=== PATIENT | female | born 1985 | race Caucasian/White ===

== ENCOUNTER → 2016-10-30 | Outpatient (CLI) | payer OTHER | LOC: CPRE 09:53 | PROVIDERS: ATTEND Obstetrics & Gynecology | DX: Z01.812 Encounter for preprocedural laboratory examination (principal); N92.0 Excessive and frequent menstruation with regular cycle | CPT/HCPCS: 36415; 80053; 81001; 85025; 86850; 86900; 86901 ==

== ENCOUNTER → 2016-10-31 | Day surgery (SDC) | payer OTHER ==
[2016-10-30 10:47] LABS: AUTOMATED NEUTROPHIL # 4.4 TH/MM3 (1.8-7.7); BASOPHIL % 0.6 % (0.0-2.0); EOSINOPHIL % 0.5 % (0.0-4.0); HEMATOCRIT 40.7 % (35.0-46.0); HEMO FLAGS DIFF FINAL; LYMPH % 29.4 % (9.0-44.0); LYMPHOCYTE # 2.2 TH/MM3 (1.0-4.8); MEAN CELL VOLUME 91.8 FL (80.0-100.0); MEAN CORPUSCULAR HEMOGLOBIN 31.8 PG (27.0-34.0); MEAN CORPUSCULAR HGB CONC 34.6 % (32.0-36.0); MONO % 8.9 % (0.0-8.0); NEUT % 60.6 % (16.0-70.0); PLATELET COUNT 250 TH/MM3 (150-450); RED BLOOD COUNT 4.43 MIL/MM3 (4.00-5.30); RED CELL DISTRIBUTION WIDTH 12.7 % (11.6-17.2); WHITE BLOOD COUNT 7.3 TH/MM3 (4.0-11.0)
[2016-10-30 10:49] LABS: BLOOD, URINE NEG (NEG); GLUCOSE,URINE NEG (NEG); KETONE, URINE NEG (NEG); MUCUS URINE FEW /lpf (OCC); NITRITE,URINE NEG (NEG); SQUAMOUS EPITHELIAL CELL URINE <1 /hpf (0-5); URINE COLOR YELLOW (YELLW/STRAW)
[2016-10-30 11:22] LABS: ALKALINE PHOSPHATASE 38 U/L (45-117); ALT (GPT) 20 U/L (10-53); ANION GAP 8 MEQ/L (5-15); AST (GOT) 6 U/L (15-37); BICARBONATE 22.8 MEQ/L (21.0-32.0); BLOOD UREA NITROGEN 9 MG/DL (7-18); CHLORIDE 107 MEQ/L (98-107); GLOMERULAR FILTRATION RATE 99 ML/MIN (>89); GLUCOSE,FASTING 85 MG/DL (74-99); POTASSIUM 3.9 MEQ/L (3.5-5.1); SODIUM (NA) 138 MEQ/L (136-145); TOTAL BILIRUBIN ADULT 0.4 MG/DL (0.2-1.0)
[~2016-10-31] VITALS: Ht 160 cm; Wt 73.5 kg
[~2016-10-31] MED LIST: DEXAMETHASONE SOD PHOS 4 MG/ML VIAL ONE; DO NOT ADM ANY ANTICOAGULANT DRUGS XX PRN; FAMOTIDINE 20 MG/2 ML VIAL ONE; INSULIN HUMAN REGULAR 1,000 UNITS/10 ML VIAL SQ PRN; KETOROLAC TROMETHAMINE 60 MG/2 ML (IM) VIAL IM ONE; LACTATED RINGER'S 1000 ML IV SCH; METOPROLOL TARTRATE 25 MG TAB PO PRN; MIDAZOLAM HCL 2 MG/2 ML VIAL ONE; ONDANSETRON HCL 4 MG/2 ML VIAL IV PUSH ONE; ONDANSETRON HCL 4 MG/2 ML VIAL IV PUSH PRN; OXYTOCIN 10 UNIT/ML AMP ONE; PROPOFOL 200 MG/20 ML AMP IV ONE; SODIUM CHLORID 0.9% 500 ML IV SCH; fentaNYL CITRATE 250 MCG/5 ML AMP ONE; oxyCODONE/ACETAMINOPHEN 5 MG/325 MG TAB PO PRN
[2016-10-31 11:19] VITALS: BP 130/85; PULSE 107; RESP 18; TEMP 98.4; O2SAT 100
[2016-10-31 15:00] VITALS: BP 144/83; PULSE 109; RESP 18; TEMP 97.4; O2SAT 100
--- NOTE | 2016-11-06 23:23 | MP ---
cc: Jeanne PORTILLO DATE OF SURGERY 10/31/2016 PREOPERATIVE DIAGNOSIS Missed POSTOPERATIVE DIAGNOSIS Missed PROCEDURE Dilation and evacuation of the uterus ANESTHESIA General SURGEON Jeanne Portillo MD FINDINGS Uterus was 8-10 weeks size. Products of conception looked normal. There were no adnexal masses. COMPLICATIONS None. COUNTS Correct. ESTIMATED BLOOD LOSS 100 mL FLUIDS Crystalloid DISPOSITION The patient tolerated the procedure well and went to recovery room in good condition. PROCEDURE IN DETAIL The patient was taken to the operating theater and identified by name band and verbally. A time-out was taken and once we all agreed, she was placed in the dorsal lithotomy position and prepped and draped for vaginal surgery. The urinary bladder was drained with in-and-out catheter and examination under anesthesia was carried out with the above findings. A weighted speculum was placed in the vagina. The anterior lip of the cervix was grasped with a single-tooth tenaculum. The cervix was serially dilated slowly without difficulty and a #10 cannula was placed into the cervical canal and into the endometrium. The suction was applied and the products of conception looked normal. A sharp curettage followed and the suction was reapplied. There was no other tissue in the uterus and at this point the procedure was terminated. The instruments were removed. She tolerated procedure well and went to recovery room in good condition. Jeanne Portillo MD RJV/ /3:44 PM /11:14 PM
== END | disposition home or self-care (01) ==
LOC: HSDC 10:38
PROVIDERS: ATTEND Obstetrics & Gynecology
DX: O02.1 Missed abortion (principal)
CPT/HCPCS: 01965; 36415; 59820; 80053; 81001; 85025; 86850; 86900; 86901; 88305; 90384; J1100; J1885; J2250; J2405; J3010; J7120; J2590; J2790

== ENCOUNTER 2017-07-28 16:56 | Emergency (ER) | payer MEDICAID, OTHER ==
[~2017-07-28] VITALS: Ht 160 cm; Wt 70.8 kg
[2017-07-28] VITALS (7 sets, daily range): BP systolic 121–142; BP diastolic 69–78; PULSE 116–130
[2017-07-28] MEDS ORDERED: PNV11TAB (17:11)
[2017-07-28 18:22] LABS: BACTERIA, URINE RARE /hpf; BLOOD, URINE NEG (NEG); COMMENT (UR) CULT NOT INDICATED; CULTURE IF INDICATED CULT NOT INDICATED; GLUCOSE,URINE NEG (NEG); KETONE, URINE 10 mg/dL (NEG); NITRITE,URINE NEG (NEG); SQUAMOUS EPITHELIAL CELL URINE <1 /hpf (0-5); URINE COLOR LIGHT-YELLOW (YELLW/STRAW)
--- NOTE | 2017-07-28 18:25 | PD ---
HPI Chief Complaint Patient sent over by Dr. Portillo for PIH evaluation Date Seen: Jul 28, 2017 Time Seen: 18:00 Travel History International Travel<30 Days: No Contact w/Intl Traveler<30Days: No Known Affected Area: No History of Present Illness HPI Patient is 32-year-old white female A1 at [address] Portillo for care and was in his office today had high blood pressure to be sent over here, she has no complaints or problems of no headache visual changes or abdominal pain. Blood pressure here all 130 over 70s, urinalysis negative for protein. Patient has a history of preeclampsia with her first and that a for that 35 weeks second uneventful no preeclampsia but she had a repeat Weeks Gestation: 21 Para: 2 : 4 Last Menstrual Period: Jul 28, 2017 Miscarriage: 1 History Obstetric History Obstetric History Preeclampsia with first not with second both pregnancies were C-sections, the last with associated with uterine rupture as well Past Surgical History Narrative Surgical 2 C-sections, and repair of uterine rupture with second Social History Alcohol Use: No Tobacco Use: No Substance Abuse: No Allergies-Medications (Allergen,Severity, Reaction): Coded Allergies: No Known Allergies (Verified , 10/30/16) Home Meds Reported Medications Nmp618/FA/Omega3/Dha/Fish Oil ( Gummies) 400 Mcg-32.5 Mg (25 Mg-7.5 Mg) Tab.chew 07/28/17 Review of Systems General / Constitutional: No: Fever, Weight Gain, Chills, Other Eyes: No: Diploplia, Blurred Vision, Visual changes, Pain, Photophobia HENT: No: Headaches, Vertigo, Lightheadedness Cardiovascular: No: Irregular Rhythm, Chest Pain or Discomfort, Palpitations, Tachycardia, Syncope, Varicosities, Edema, Cyanosis Respiratory: No: Cough, Short of Breath, Other Gastrointestinal: No: Nausea, Vomiting, Diarrhea Genitourinary: No: Decreased Urinary Output, Oliguria Musculoskeletal: No: Limited ROM, Weakness, Cramping, Edema, Pain Skin: No Rash, No Itching, No Dryness, No Lumps, No Change in Pigmentation, No Change in Nails, No Alopecia, No Lesions Neurologic: No: Weakness, Dizziness, Syncope, Focal Abnormalities, Coordination Problem, Headache, Slurred Speech, Seizures Psychiatric: No: Depression, Suicidal Ideations, Homicidal Ideation Endocrine: No: Heat Intolerance, Cold Intolerance, Polydipsia, Polyuria, Other Physical Exam Narrative GENERAL: Well-nourished, well-developed patient. SKIN: Warm and dry. HEAD: Normocephalic and atraumatic. EYES: No scleral icterus. No injection or drainage. ENT: No nasal drainage noted. Mucous membranes pink. Airway patent. NECK: Supple, trachea midline. No JVD. CARDIOVASCULAR: Regular rate and rhythm without murmurs, gallops, or rubs. RESPIRATORY: Breath sounds equal bilaterally. No accessory muscle use. BREASTS: Bilateral exam showed no masses , no retractions, no nipple discharge. ABDOMEN/GI: Abdomen soft, non-tender, bowel sounds present, no rebound, no guarding Gravid to [20-] weeks size Fundal Height: [-at umbilicus] GENITOURINARY: Uterine Contractions: [-none] FHT's: 140s EXTREMITIES: No cyanosis or edema. BACK: Nontender without obvious deformity. No CVA tenderness. NEUROLOGICAL: Awake and alert. Motor and sensory grossly within normal limits. Five out of 5 muscle strength in all muscle groups. Normal speech. Data Data Orders Orders Vital Signs (Adult) .ON ADMISSION (07/28/17 17:35) ^ Labor Status (07/28/17 17:35) Urinalysis - C+S If Indicated (07/28/17 17:35) Cbc No Diff, Includes Plts (07/28/17 17:35) Comprehensive Metabolic Panel (07/28/17 17:35) Uric Acid (07/28/17 17:35) Labs Urine dipstick negative for protein Laboratory Tests Test 07/28/17 17:29 [facility] Interpretation(s) 32-year-old white female G3 for at 21 weeks who was sent over by Dr. Portillo for PIH venancio. Her blood pressure in his office was elevated and the 140/80 range and with her history of preeclampsia with her first being delivered early by her second had a uterine rupture associated , he wanted the patient sent over for evaluation. Her blood pressures here within normal limits 130s over 70s, urine dipstick negative for protein PIH lab within normal limits Plan Plan for patient to be discharged today to follow-up with Dr. Portillo in the usual fashion Diagnosis Diagnosis: Primary Impression: Transient hypertension of Additional Impressions: 21 weeks gestation of History of pre-eclampsia in prior , currently in second trimester Disposition: 01 DISCHARGE HOME Condition: Stable Dinesh Muñoz II, MD Jul 28, 2017 18:25
[2017-07-28 18:44] LABS: HEMATOCRIT 35.4 % (35.0-46.0); MEAN CELL VOLUME 93.7 FL (80.0-100.0); MEAN CORPUSCULAR HEMOGLOBIN 32.6 PG (27.0-34.0); MEAN CORPUSCULAR HGB CONC 34.8 % (32.0-36.0); PLATELET COUNT 199 TH/MM3 (150-450); RED BLOOD COUNT 3.78 MIL/MM3 (4.00-5.30); RED CELL DISTRIBUTION WIDTH 13.1 % (11.6-17.2); REVIEW FLAG FINAL; WHITE BLOOD COUNT 11.5 TH/MM3 (4.0-11.0)
[2017-07-28 19:00] LABS: ALT (GPT) 20 U/L (10-53); ANION GAP 9 MEQ/L (5-15); AST (GOT) 12 U/L (15-37); BICARBONATE 19.9 MEQ/L (21.0-32.0); BLOOD UREA NITROGEN 5 MG/DL (7-18); CHLORIDE 108 MEQ/L (98-107); GLOMERULAR FILTRATION RATE 199 ML/MIN (>89); POTASSIUM 3.9 MEQ/L (3.5-5.1); SODIUM (NA) 137 MEQ/L (136-145)
[2017-07-28 19:06] LABS: ALKALINE PHOSPHATASE 36 U/L (45-117); TOTAL BILIRUBIN ADULT 0.3 MG/DL (0.2-1.0); URIC ACID 3.1 MG/DL (2.6-6.0)
== END 2017-07-28 19:29 | disposition home or self-care (01) ==
LOC: HOBED 16:56
DX: O13.2 Gestational [pregnancy-induced] hypertension without significant proteinuria, second trimester (principal); Z3A.21 21 weeks gestation of pregnancy
CPT/HCPCS: 36415; 80053; 81001; 84550; 85027; 99284

== ENCOUNTER 2017-11-30 09:49 | Inpatient (IN) | payer MEDICAID ==
[~2017-11-30] VITALS: Ht 160 cm; Wt 76.0 kg
[~2017-11-30 09:49] MED LIST changes: -DEXAMETHASONE SOD PHOS 4 MG/ML VIAL ONE; -DO NOT ADM ANY ANTICOAGULANT DRUGS XX PRN; -FAMOTIDINE 20 MG/2 ML VIAL ONE; -INSULIN HUMAN REGULAR 1,000 UNITS/10 ML VIAL SQ PRN; -KETOROLAC TROMETHAMINE 60 MG/2 ML (IM) VIAL IM ONE; -LACTATED RINGER'S 1000 ML IV SCH; -METOPROLOL TARTRATE 25 MG TAB PO PRN; -MIDAZOLAM HCL 2 MG/2 ML VIAL ONE; -ONDANSETRON HCL 4 MG/2 ML VIAL IV PUSH ONE; -ONDANSETRON HCL 4 MG/2 ML VIAL IV PUSH PRN; -OXYTOCIN 10 UNIT/ML AMP ONE; +PNV11TAB; -PROPOFOL 200 MG/20 ML AMP IV ONE; -SODIUM CHLORID 0.9% 500 ML IV SCH; -fentaNYL CITRATE 250 MCG/5 ML AMP ONE; -oxyCODONE/ACETAMINOPHEN 5 MG/325 MG TAB PO PRN
[2017-11-30] MEDS ORDERED: ASPI81CH7 CHEW (11:10)
[2017-11-30] MEDS ORDERED: NIFE30TA61 PO (11:10)
[2017-11-30] MEDS ORDERED: CITRIC ACID-SODIUM CITRATE LIQ 30 ML UDC PO SCH (11:15)
[2017-11-30] MEDS ORDERED: LACTATED RINGER'S 1000 ML IV SCH (11:15)
[2017-11-30] MEDS ORDERED: ceFAZolin 2 GM PREMIX 50 ML IV SCH (11:15)
[2017-11-30] MEDS ORDERED: LACTATED RINGER'S 1000 ML IV ONE (11:15)
[2017-11-30 11:26] LABS: AUTOMATED NEUTROPHIL # 7.5 TH/MM3 (1.8-7.7); BASOPHIL % 0.3 % (0.0-2.0); EOSINOPHIL % 0.1 % (0.0-4.0); HEMATOCRIT 39.2 % (35.0-46.0); LYMPH % 20.3 % (9.0-44.0); LYMPHOCYTE # 2.1 TH/MM3 (1.0-4.8); MEAN CELL VOLUME 92.6 FL (80.0-100.0); MEAN CORPUSCULAR HEMOGLOBIN 33.2 PG (27.0-34.0); MEAN CORPUSCULAR HGB CONC 35.8 % (32.0-36.0); MEAN PLATELET VOLUME 8.6 FL (7.0-11.0); MONO % 5.9 % (0.0-8.0); MONOCYTE # 0.6 TH/MM3 (0-0.9); NEUT % 73.4 % (16.0-70.0); PLATELET COUNT 187 TH/MM3 (150-450); RED BLOOD COUNT 4.23 MIL/MM3 (4.00-5.30); RED CELL DISTRIBUTION WIDTH 13.2 % (11.6-17.2); WHITE BLOOD COUNT 10.2 TH/MM3 (4.0-11.0)
[2017-11-30 11:49] LABS: ALBUMIN 3.2 GM/DL (3.4-5.0); AST (GOT) 19 U/L (15-37); BLOOD UREA NITROGEN 5 MG/DL (7-18); CALCIUM 8.8 MG/DL (8.5-10.1); CHLORIDE 109 MEQ/L (98-107); CREATININE 0.57 MG/DL (0.50-1.00); GLOMERULAR FILTRATION RATE 125 ML/MIN (>89); GLUCOSE,RANDOM 77 MG/DL (74-106); SODIUM (NA) 139 MEQ/L (136-145)
[2017-11-30 11:53] LABS: ALKALINE PHOSPHATASE 140 U/L (45-117); ALT (GPT) 21 U/L (10-53); TOTAL BILIRUBIN ADULT 0.4 MG/DL (0.2-1.0)
[2017-11-30] MEDS ORDERED: MORPHINE SULFATE PF 5 MG/10 ML VIAL ONE (11:57)
[2017-11-30] MEDS ORDERED: ACETAMINOPHEN 1000 MG/100 ML 100 ML IV ONE ×2 (11:57→14:00)
[2017-11-30] MEDS ORDERED: LACTATED RINGER'S 1000 ML INJ 2,000 ML IV ONE (12:00)
[2017-11-30] MEDS ORDERED: ceFAZolin INJ 1,000 MG VIAL IV ONE (12:00)
[2017-11-30] MEDS ORDERED: ePHEDrine/NS 25 MG/5 ML SYRINGE IV ONE (12:00)
[2017-11-30] MEDS ORDERED: DEXAMETHASONE SOD PHOS 4 MG/ML VIAL IV ONE (12:00)
[2017-11-30] MEDS ORDERED: KETOROLAC TROMETHAMINE 30 MG/ML (IVP) VIAL IV PUSH ONE (12:00)
[2017-11-30] MEDS ORDERED: ONDANSETRON HCL 4 MG/2 ML VIAL IV ONE (12:00)
[2017-11-30] MEDS ORDERED: OXYTOCIN 10 UNIT/ML AMP IV ONE (12:00)
[2017-11-30] MEDS ORDERED: EPIDURAL-NO SYSTEMIC NARCOTICS PRN (12:20)
[2017-11-30] MEDS ORDERED: EPIDURAL-NALOXONE HCL 0.4 MG/ML AMP IV PUSH PRN (12:20)
[2017-11-30] MEDS ORDERED: EPIDURAL-DIPHENHYDRAMINE HCL 50 MG/ML VIAL IV PUSH PRN (12:20)
[2017-11-30] MEDS ORDERED: EPIDURAL-DO NOT ADMINISTER ANTICOAGULANTS PRN (12:20)
[2017-11-30] MEDS ORDERED: EPIDURAL-DIPHENHYDRAMINE HCL 50 MG CAP PO PRN (12:20)
[2017-11-30] MEDS ORDERED: SODIUM CHLORIDE 0.9% FLUSH 10 ML FLUSH IV FLUSH PRN (14:00)
[2017-11-30] MEDS ORDERED: oxyCODONE/ACETAMINOPHEN 5 MG/325 MG TAB PO PRN ×2 (14:00)
[2017-11-30] MEDS ORDERED: OXYTOCIN 30 UNITS-500ML PREMIX 500 ML IV ONE ×2 (14:00)
[2017-11-30] MEDS ORDERED: OXYTOCIN 30 UNITS-500ML PREMIX 500 ML ONE (14:12)
[2017-11-30 15:30] LABS: BACTERIA, URINE RARE /hpf; BILIRUBIN, URINE NEG (NEG); BLOOD, URINE NEG (NEG); GLUCOSE,URINE NEG (NEG); HYALINE CAST, URINE 1 /lpf (RARE); KETONE, URINE 10 mg/dL (NEG); MUCUS URINE FEW /lpf (OCC); NITRITE,URINE NEG (NEG); PH, URINE 5.5 (5.0-8.5); SQUAMOUS EPITHELIAL CELL URINE 3 /hpf (0-5); URINE COLOR YELLOW (YELLW/STRAW); URINE LEUKOCYTE ESTERASE NEG (NEG)
--- NOTE | 2017-11-30 15:43 | MP ---
cc: Jeanne Portillo MD DATE OF OPERATION: PREOPERATIVE DIAGNOSES: 1. Intrauterine at 39+ weeks. 2. Previous section due to repeat. 3. RH negative blood. POSTOPERATIVE DIAGNOSES: 1. Intrauterine at 39+ weeks. 2. Previous section due to repeat. 3. RH negative blood. PROCEDURE: Repeat low transverse section. SURGEON: Jeanne Portillo MD. CREMATORIUM OPERATOR: []. ANESTHESIA: Spinal. FINDINGS: Normal male infant, weight 6 pounds 13 ounces, Apgars 9 and 9. Normal tubes, normal ovaries, normal uterus, normal cul-de-sac. COMPLICATIONS: None. COUNTS: Correct. ESTIMATED BLOOD LOSS: 600 mL. FLUIDS: Crystalloid. CONDITION: The patient tolerated the procedure well and went to the recovery room in satisfactory condition. PROCEDURE: Under an adequate level of anesthesia, she was prepped and draped for abdominal surgery. A Pfannenstiel incision was made and carried down to the fascia. The fascia was taken off the rectus muscle by blunt and sharp dissection. The rectus muscles were spread bluntly and the peritoneum was entered under direct vision without difficulty. The incision was extended with care to avoid the urinary bladder. A bladder blade was placed and a bladder flap created in the usual fashion. The uterine incision was made in a transverse manner along the lower uterine segment which was not well-developed. It was taken down in the midline until the intrauterine cavity was entered. A large amount of clear fluid was noted. The vertex was grasped with a suction cup and delivered. The hypopharynx and nasopharynx were suctioned and the remainder of the infant delivered without difficulty. The cord was doubly clamped and cut and the handed to the resuscitation team present. The placenta was then delivered manually. The uterus was curettaged twice with a wet lap and irrigated with a large amount of fluid. The uterine incision was then repaired with 2-0 Vicryl in a running locking fashion, with the second layer imbricating the first. Hemostasis was excellent. The cul-de-sac and gutters were cleaned of blood and debris. The uterus was delivered back into the abdomen. The rectus muscles were reapproximated with 0 Vicryl in interrupted fashion. The fascia was repaired from lateral to midline with 0 Vicryl and the subcu was repaired with 3-0 Vicryl. The skin was repaired with a 4-0 Vicryl in a subcuticular manner. The wound was sterilely dressed. She tolerated the procedure well and went to the recovery room in satisfactory condition. R. MD NONA [place]/SHALONDA , 01:30 PM , 02:48 PM
[2017-11-30] MEDS ORDERED: LACTATED RINGER'S 1000 ML INJ 1,000 ML IV SCH (18:23)
[2017-11-30] MEDS ORDERED: SODIUM CHLORIDE 0.9% FLUSH 10 ML FLUSH IV FLUSH SCH (21:00)
[2017-11-30] MEDS ORDERED: ZOLPIDEM TARTRATE 5 MG TAB PO PRN (21:00)
[2017-11-30] MEDS ORDERED: OXYTOCIN 30 UNITS-500ML PREMIX 500 ML IV PRN (23:30)
[2017-12-01 06:01] LABS: AUTOMATED NEUTROPHIL # 8.8 TH/MM3 (1.8-7.7); BASOPHIL % 0.3 % (0.0-2.0); EOSINOPHIL % 0.2 % (0.0-4.0); HEMATOCRIT 33.2 % (35.0-46.0); HEMOGLOBIN 11.6 GM/DL (11.6-15.3); LYMPH % 16.4 % (9.0-44.0); LYMPHOCYTE # 1.9 TH/MM3 (1.0-4.8); MEAN CORPUSCULAR HEMOGLOBIN 32.9 PG (27.0-34.0); MEAN CORPUSCULAR HGB CONC 35.1 % (32.0-36.0); MONO % 8.2 % (0.0-8.0); NEUT % 74.9 % (16.0-70.0); PLATELET COUNT 157 TH/MM3 (150-450); RED BLOOD COUNT 3.53 MIL/MM3 (4.00-5.30); WHITE BLOOD COUNT 11.7 TH/MM3 (4.0-11.0)
[2017-12-01 08:00] VITALS: BP 117/75; PULSE 75; RESP 18; TEMP 98.3; O2SAT 100
--- NOTE | 2017-12-01 08:48 | HHI.OB ---
Subjective Post Operative Day: 1 Objective Vitals/I&O BP's have been less than 120's/70-80's afebrile pulse and resp wnl Result Diagram: 12/01/17 0520 11/30/17 1045 Objective Remarks GENERAL: Well-nourished, well-developed patient. CARDIOVASCULAR: Regular rate and rhythm without murmurs, gallops, or rubs. RESPIRATORY: Breath sounds equal bilaterally. No accessory muscle use. ABDOMEN/GI: Abdomen soft, non-tender, bowel sounds present. Incision: dressing, Clean, dry and intact. Fundus: Firm, non-tender at umbilicus. GENITOURINARY: Light to moderate bleeding. EXTREMITIES: No cyanosis or edema, non-tender, without signs of DVT. Medications and IVs Current Medications Medications (Trade) Dose Ordered Sig/Kym Route Start Time Stop Time Status Last Admin (Bicitra Liq) 30 ml TITLE I DIRECTOR PO 11/30/17 11:15 12/03/17 11:14 11/30/17 11:54 Cefazolin Sodium/ Dextrose 50 ml @ 100 mls/hr TITLE I DIRECTOR IV 11/30/17 11:15 12/03/17 11:14 Lactated Ringer's 1,000 ml @ 100 mls/hr Q10H IV 11/30/17 18:23 12/01/17 14:22 Oxytocin 500 ml @ 100 mls/hr UNSCH X1 PRN IV 11/30/17 23:30 12/01/17 23:29 (NS Flush) 2 ml BID IV FLUSH 11/30/17 21:00 (NS Flush) 2 ml UNSCH PRN IV FLUSH 11/30/17 14:00 (Motrin) 600 mg Q6H PRN PO 11/30/17 14:00 (Percocet 5-325 Mg) 1 tab Q4H PRN PO 11/30/17 14:00 (Percocet 5-325 Mg) 2 tab Q4H PRN PO 11/30/17 14:00 (Ambien) 5 mg HS PRN PO 11/30/17 21:00 (M-M-R Ii Inj) 0.5 ml ONCE ONCE SQ 12/01/17 16:00 12/01/17 16:01 (Boostrix Inj) 0.5 ml ONCE ONCE IM 12/01/17 16:00 12/01/17 16:01 11/30/17 20:06 Miscellaneous Information NO SYSTEMIC NARCOTICS TO BE GIVEN FO... UNSCH PRN .XX 11/30/17 12:20 12/01/17 12:19 (Narcan Inj) 0.4 mg UNSCH PRN IV PUSH 11/30/17 12:20 12/01/17 12:19 (Benadryl Inj) 25 mg Q6H PRN IV PUSH 11/30/17 12:20 12/01/17 12:19 (Benadryl) 50 mg Q6H PRN PO 11/30/17 12:20 12/01/17 12:19 Miscellaneous Information ALL NURSING DEPARTMENTS UNSCH PRN .XX 11/30/17 12:20 12/01/17 12:19 Assessment/Plan Problem List: (1) S/P repeat low transverse ICD Codes: Z98.891 - History of uterine scar from previous surgery Assessment and Plan POD #1 pt doing well pain well managed with oral garza medication bp have been normal, no S/S of pre-eclampsia breast feeding and bonding well with infant up to shower today routine care Discharge Planning consider dc home tomorrow Melissa Modi Dec 01, 2017 08:48
[2017-12-01] MEDS: IBUPROFEN 600 MG TAB PO PRN ×3 (11:16→23:23)
[2017-12-01 12:00] VITALS: BP 134/90; PULSE 103; RESP 18; TEMP 98.3; O2SAT 98
[2017-12-01 15:44] VITALS: BP 138/78
[2017-12-01] MEDS ORDERED: DIPHTH/TETANUS/ACEL PERTUSSIS (BOOSTER) 0.5 ML VIAL/PFS IM ONE (16:00)
[2017-12-01] MEDS ORDERED: MEASLES, MUMPS, RUBELLA VACCINE 0.5 ML VIAL SQ ONE (16:00)
[2017-12-01 20:00] VITALS: BP 127/92; PULSE 70; RESP 18; TEMP 98.9; O2SAT 96
[2017-12-02] MEDS: IBUPROFEN 600 MG TAB PO PRN ×2 (05:26→12:06)
[2017-12-02 08:00] VITALS: BP 144/91; PULSE 82; RESP 16; TEMP 98.1
--- NOTE | 2017-12-02 08:30 | HHI.OB ---
Subjective Post Operative Day: 2 Objective Vitals/I&O Vital Signs Date Time Temp Pulse Resp B/P (MAP) Pulse Ox O2 Delivery O2 Flow Rate FiO2 12/01/17 20:00 98.9 70 18 127/92 (104) 96 12/01/17 15:44 138/78 (98) 12/01/17 12:00 98.3 103 18 134/90 (105) 98 12/01/17 12:00 98.3 103 18 134/90 (105) 98 Result Diagram: 12/01/17 0520 11/30/17 1045 Objective Remarks GENERAL: Well-nourished, well-developed patient. CARDIOVASCULAR: Regular rate and rhythm without murmurs, gallops, or rubs. RESPIRATORY: Breath sounds equal bilaterally. No accessory muscle use. ABDOMEN/GI: Abdomen soft, non-tender, bowel sounds present. Incision: steri strips, Clean, dry and intact. Fundus: Firm, non-tender at umbilicus. GENITOURINARY: Light to moderate bleeding. EXTREMITIES: No cyanosis or edema, non-tender, without signs of DVT. Medications and IVs Current Medications Medications (Trade) Dose Ordered Sig/Kym Route Start Time Stop Time Status Last Admin (Bicitra Liq) 30 ml BRAIDER SETTER PO 11/30/17 11:15 12/03/17 11:14 11/30/17 11:54 Cefazolin Sodium/ Dextrose 50 ml @ 100 mls/hr BRAIDER SETTER IV 11/30/17 11:15 12/03/17 11:14 (NS Flush) 2 ml BID IV FLUSH 11/30/17 21:00 (NS Flush) 2 ml UNSCH PRN IV FLUSH 11/30/17 14:00 (Motrin) 600 mg Q6H PRN PO 11/30/17 14:00 12/02/17 05:26 (Percocet 5-325 Mg) 1 tab Q4H PRN PO 11/30/17 14:00 (Percocet 5-325 Mg) 2 tab Q4H PRN PO 11/30/17 14:00 (Ambien) 5 mg HS PRN PO 11/30/17 21:00 Assessment/Plan Problem List: (1) S/P repeat low transverse ICD Codes: Z98.891 - History of uterine scar from previous surgery Assessment and Plan POD #2 pt doing well pain well managed with oral garza medication bp elevated, no S/S of pre-eclampsia, we will start on procardia and watch bp today breast feeding and bonding well with infant routine care Discharge Planning dc home this afternoon if bp are wnl on meds Melissa Modi Dec 02, 2017 08:30
[2017-12-02] MEDS ORDERED: NIFEdipine 30 MG SUSTAINED RELEASE TAB PO SCH (09:00)
[2017-12-02 10:00] VITALS: BP 142/93; PULSE 105; RESP 17
--- NOTE | 2017-12-02 11:10 | HHI.DS ---
Admission Date Nov 30, 2017 at 09:49 Discharge Date: Dec 02, 2017 Admitting Diagnosis term previous c section hx of uterine rupture and pre-eclampsia Diagnosis: (1) S/P repeat low transverse ICD Codes: Z98.891 - History of uterine scar from previous surgery (2) induced hypertension ICD Codes: O13.9 - Gestational [-induced] hypertension without significant proteinuria, unspecified trimester Delivery Date: Nov 30, 2017 : Repeat : Male Brief History term 39+weeks induced hypertension previous c section previous uterine rupture and pre eclampsia Hospital Course term pregancy repeat c section monitor bp routine Pt Condition on Discharge: Good Discharge Disposition: Discharge Home Discharge Instructions Diet Instructions: As Tolerated, No Restrictions Additional Diet Instructions: Drink at least 8 - 16 oz bottles of water a day Activities You Can Perform: Shower Only-No Bath Activities to Avoid: Prolonged Standing, Strenuous Activity, Sexual Activity Additional Activity Instruc.: No driving until off pain medications Do not lift anything heavier than your baby in an carrier Follow up Referrals: [facility]OR [facility] - 1 Week @ [facility] Melissa Modi Dec 02, 2017 11:10
[2017-12-02] MEDS ORDERED: OXYC1TAB63 PO (12:56)
[2017-12-02] MEDS ORDERED: IBUP-232 PO (12:56)
[2017-12-02] MEDS ORDERED: NIFE30TA8 PO (12:56)
== END 2017-12-02 13:49 | disposition home or self-care (01) | DRG 766 ==
LOC: H2EB 09:49 → H1EA 15:01
PROVIDERS: ADMIT Obstetrics & Gynecology; ATTEND Obstetrics & Gynecology
PROC: 10D00Z1 Extraction of Products of Conception, Low, Open Approach (ICD-10-PCS; principal; 2017-11-30)
DX: O34.211 Maternal care for low transverse scar from previous cesarean delivery (principal); O13.4 Gestational [pregnancy-induced] hypertension without significant proteinuria, complicating childbirth; Z3A.39 39 weeks gestation of pregnancy; Z37.0 Single live birth; Z23 Encounter for immunization
CPT/HCPCS: 59025; 80053; 80307; 81001; 85025; 85461; 86850; 86900; 86901; 90384; 90715; J0131; J0690; J1100; J1885; J2274; J2405; J2590; J2790; J7120